=== PATIENT | female | born 1965 | race Caucasian/White ===

== ENCOUNTER 2020-11-12 14:45 | Emergency (ER) | payer BC ==
[~2020-11-12] VITALS: Ht 157.5 cm; Wt 61.4 kg
[2020-11-12 14:51] VITALS: BP 129/82; TEMP 98.2
[2020-11-12] MEDS ORDERED: MOBIC 7.5MG7.5 MG PO (16:56)
[2020-11-12] MEDS ORDERED: LIDODERM 5% PATC1 EA TP (16:56)
[2020-11-12 17:11] VITALS: PULSE 70
== END 2020-11-12 17:12 | disposition home or self-care (01) ==
LOC: COL.ER 14:45
DX: S20.211A Contusion of right front wall of thorax, initial encounter (principal); F17.210 Nicotine dependence, cigarettes, uncomplicated; X50.9XXA Other and unspecified overexertion or strenuous movements or postures, initial encounter
CPT/HCPCS: A9284; J1885